=== PATIENT | female | born 1970 | race Caucasian/White ===

== ENCOUNTER 2024-11-14 17:01 | Emergency (ER) | payer MEDICARE, MEDICAID, SELFPAY ==
--- NOTE | ~2024-11-14 | CT_ITS ---
CLINICAL HISTORY: head pressure CT head without contrast Comparison: None provided Findings: No intra-axial mass, midline shift, hydrocephalus, or acute hemorrhage. Empty sella is demonstrated, nonspecific. No significant atrophy-like change or white matter disease. There is no sinus or mastoid fluid. The orbits are within normal limits. No skull fracture. IMPRESSION: 1. No acute intracranial findings. This document has been electronically signed by: Jude Ray MD on 11/14/2024 19:11:01
[2024-11-14 17:07] VITALS: BP 156/65; PULSE 70; RESP 18; TEMP 36.6; O2SAT 98; BMI 32.4
--- NOTE | 2024-11-14 17:31 | ED.HA ---
HPI - Headache General Chief Complaint: Headache Stated Complaint: Head Ache Related Data Allergies Allergy/AdvReac Type Severity Reaction Status Date / Time No Known Allergies Allergy Verified 11/14/24 17:09 [facility] Social History Social History Advance Directives: No Advance Directives Information Provided: No Do you have a plan to hurt others: No Plan Physical Exam Vital Signs: Vital Signs: Last Vital Signs Temp 98 F 11/14/24 17:07 Pulse 70 11/14/24 17:07 Resp 18 11/14/24 17:07 BP 156/65 H 11/14/24 17:07 Pulse Ox 98 11/14/24 17:07 O2 Del Method Room Air 11/14/24 17:07 BMI result Body Mass Index 32.4 Course Course Course Narrative: This is a Rapid Medical Examination (RME) performed by Tiny Gleason PA-C in triage. Full HPI, ROS, assessment and treatment plan per primary provider in the Main ED. Hx: 54 yo F here for eval of headache and head pressure x1 month. CRUZ goes away with eating sugar. reports L ear feels clogged. Plan: CT head Reevaluation(s) Reevaluation #1: Patient left the emergency department before myself or any of the other clinicians could review or explain physical exam findings, test results, need or lack there of for additional testing, treatment options, or a treatment plan. Discharge Plan Discharge Clinical Impression: Headache Patient Disposition: Left W/O Completing Treatment Discharge Date/Time: 11/14/24 23:04
== END 2024-11-14 23:04 | disposition left against medical advice (07) ==
PROVIDERS: Emergency Provider Emergency Medicine
DX: R51.9 Headache, unspecified (principal)
CPT/HCPCS: 70450; 99281; 99284

== ENCOUNTER → 2024-11-14 17:31 | Outpatient (BNV) | payer MEDICARE, MEDICAID, SELFPAY | PROVIDERS: Visit Provider Radiology Diagnostic Radiology | DX: R51.9 Headache, unspecified (principal) | CPT/HCPCS: 70450 ==